=== PATIENT | female | born 1975 | race Caucasian/White ===

== ENCOUNTER 2025-06-02 10:48 | Outpatient (OUT) | payer OTHER, SELFPAY ==
--- OUTSIDE RECORDS SUMMARY | 2009-09-29 05:45 | XMS_ITS | Continuity of Care Document ---
Author Organization [facility] Address [address] [place] [address] Phone Care Team Providers Care Alignment Mechanic Name Role Phone Namrata PONCE Cruz Unavailable Unavailable Procedures Procedure Date TB INTRADERMAL TEST Advance Directives Directive Yes / No Effective Date File Name No Information Encounters Encounter Description Practice Location Reason(s) For Visit Diagnoses Date Provider Providers Copied on Encounter [facility], [address] [place] [address], [id number], [place] tel:[phone] [facility] No Information Namrata Herbert. [address], [place], [id number], [place]. tel:[phone] Family History Family Member Type Diagnosis Age At Onset No Information Payers Payer name Insurance type Covered libertarian ID Authoriza tion(s) No Information Social History Type Description Quantity Date Captured Comments Sex Female Smoking Status No Information Chief Complaint And Reason For Visit No Information Reason For Referral Reason For Referral No Information History Of Present Illness Encounter Date Complaint History Of Prese nt Illness No Information Functional Status Date Functional Assessmen t No Information Instructions Date Instruction Additional Infor mation No Information Assessments Type Assessment Date No Information Patient Care Teams Name Effective Dates (start - stop) Status Members No Information
--- OUTSIDE RECORDS SUMMARY | 2025-06-02 10:53 | XMS_ITS | Clinical Summary ---
Author Organization [facility] Address [address] [facility] [place] [address] Care Team Providers Care Repairer [employer] Name Role Phone Robe Caldera MD Primary Care Provider [phone] Robe Caldera MD Unavailable Allergies No known active allergies Medications ibuprofen 800 MG tabletIndications: Lumbar disc narrowing Take 1 tablet (800 mg) by mouth 3 (three) times a day as needed for mild pain 90 tablet 3 10/04/19 24 Active naloxone (Narcan) 4 mg/0.1 mL nasal sprayIndications:L zuleyka term current use of opiate analgesic Administer 1 spray (4 mg) into affected nostril(s) if needed for opioid reversal May repeat every 2-3 minutes if needed, alternating nostrils, until medical assistance becomes available. 2 each 3 04/29/20 24 Active cholecalciferol (Vitamin D-3) 50 MCG (1999 UT) tabletIndications: Vitamin D deficiency TAKE 1 TABLET BY MOUTH EVERY DAY 90 tablet 2 08/22/20 24 Active diclofenac sodium 1 % gelIndications:Brian ateral primary osteoarthritis of hip Apply 2 g topically in the morning and 2 g at noon and 2 g in the evening and 2 g before bedtime. 350 g 3 10/30/19 25 Active fluticasone (Flonase) 50 MCG/ACT nasal sprayIndications:A cute upper respiratory infection, unspecified,Acute upper respiratory infection SPRAY 2 SPRAYS INTO EACH NOSTRIL DAILY 48 mL 1 11/06/19 25 Active phentermine (Adipex-P) 37.5 MG tabletIndications: Class 3 severe obesity due to excess calories without serious comorbidity with body mass index (BMI) of 40.0 to 44.9 in adult ([facility]) Take 1 tablet (37.5 mg) by mouth in the morning. Take before meals. 30 tablet 04/29/20 Active oxyCODONE-acetamin ophen (Percocet) 10-325 MG tabletIndications: Lumbar disc narrowing Take 1 tablet by mouth 4 (four) times a day as needed for severe pain 120 tablet 04/29/20 25 025 Active Problems Problem Noted Date Diagnosed Date Class 3 severe obesity due t o excess calories without serious comorbidity with body mass index (BMI) of 40.0 to 44.9 in adult 04/29/2024 Assessment & Plan (04/29/2025 11:04 AM EDT): Patient overweight and difficult time losing weight. Discussed proper diet and regular aerobic exercise. Recommend Weight Watchers and need to limit calories and smaller portions. Need to increase activity and regular aerobic exercise several days a week for 30 minutes at a time. Interested in adipex and warned of potential cardiac side effects. Script written for first month and will need to recheck weight in 1 month. OARRS reviewed. Continue medications as prescribed. Assessment & Plan (10/30/2024 11:19 AM EST): Weight loss indicated. Assessment & Plan (04/29/2024 11:24 AM EDT): Weight loss indicated. Bilateral primary osteoarthritis of hip 10/04/19 Assessment & Plan (04/29/2025 11:03 AM EDT): Pain stable and use motrin and baclofen. Continue home ROM exercises. Use percocet PRN. Discussed risks and benefits of opiate therapy. Warned medication is narcotic and risk of addiction. OARRS reviewed. Assessment & Plan (04/29/2024 11:23 AM EDT): Pain stable and use motrin and baclofen. Continue home ROM exercises. Use percocet PRN. Discussed risks and benefits of opiate therapy. Warned medication is narcotic and risk of addiction. OARRS reviewed. Lumbar disc narrowing 10/04/2023 Assessment & Plan (04/29/2025 11:04 AM EDT): Pain stable and use motrin and baclofen. Continue home ROM exercises. Use percocet PRN. Discussed risks and benefits of opiate therapy. Warned medication is narcotic and risk of addiction. OARRS reviewed. Assessment & Plan (10/30/2024 11:20 AM EST): Pain stable and use motrin and baclofen. Continue home ROM exercises. Use percocet PRN. Discussed risks and benefits of opiate therapy. Warned medication is narcotic and risk of addiction. OARRS reviewed. Assessment & Plan (04/29/2024 11:23 AM EDT): Pain stable and use motrin and baclofen. Continue home ROM exercises. Use percocet PRN. Discussed risks and benefits of opiate therapy. Warned medication is narcotic and risk of addiction. OARRS reviewed. Assessment & Plan (10/04/2023 1:42 PM EST): Pain unchanged and continue motrin 800. Use percocet PRN. Vitamin D deficiency 10/04/2023 Annual physical exam 10/04/2023 Assessment & Plan (10/30/2024 11:19 AM EST): Due for labs and mammogram. Discussed proper diet and regular aerobic exercise. Need aerobic exercise 5-6 days a week for 30 minutes at a time. Smaller portions and limit total calories. Never had colon cancer screening and willing to have cologuard. Tetanus every 10 years. Advised not to smoke. Discussed daily Aspirin therapy. Assessment & Plan (10/04/2023 1:41 PM EST): Due for labs. Refused mammogram. Discussed proper diet and regular aerobic exercise. Need aerobic exercise 5-6 days a week for 30 minutes at a time. Smaller portions and limit total calories. Never had colon cancer screening and willing to have cologuard. Tetanus every 10 years. Advised not to smoke. Discussed daily Aspirin therapy. Herpes labialis 10/04/2023 Resolved Problems Problem Noted Date Diagnosed Date Resolved Date Acute left ankle pain 04/29/20242024 Assessment & Plan (04/29/2024 11:23 AM EDT): Pain likely related to OA. Treat with prednisone and use voltaren gel PRN. Encounters Date Type Department Care Team Description 04/29/2025 10:15 AM EDT Office Visit [facility] [address] [address] Robe Caldera MD Lumbar disc narrowing (Primary Dx); Bilateral primary osteoarthritis of hip; Class 3 severe obesity due to excess calories without serious comorbidity with body mass index (BMI) of 40.0 to 44.9 in adult ([facility]) 04/29/2025 Refill [facility] [address] [place] [address] Robe Caldera MD Lumbar disc narrowing 04/29/2025 Bamboo flowsheet [facility] [address] [address] Robe Caldera MD 04/02/2025 Refill [facility] [address] [place] [id number] Robe Caldera MD Lumbar disc narrowing 03/03/2025 Refill [facility] [address] [place] [address] Robe Caldera MD Lumbar disc narrowing from Last 3 Months Family History Medical History Relation Name Comments No Known Problems Father Diabetes Mother Relation Name Status Comments Father Mother Social History Tobacco Use Types Packs/Day Years Used Date Smoking Tobacco: Every Day Cigarettes Smokeless Tobacco: Never Tobacco Cessation:Ready to Q uit: Not Asked; Counseling Given: Not Answered PHQ-2 Answer Date Recorded Patient Health Questionnaire-2 Score 1 10/04/2023 Comments Unknown Sex and Gender Information Value Date Recorded Sex Assigned at Not on file Legal Sex Female 8:13 PM EDT Gender Identity Not on file Sexual Orientation Not on file Last Filed Vital Signs Vital Sign Reading Time Taken Comments Blood Pressure 128/72 04/29/2025 10:39 AM EDT Pulse 92 04/29/2025 10:39 AM EDT Temperature 36.3 C (97.3 F) 04/29/2025 10:39 AM EDT Respiratory Rate 20 04/29/2025 10:39 AM EDT Oxygen Saturation 98% 04/29/2025 10:39 AM EDT Inhaled Oxygen Concentration - - Weight 101 kg (223 lb) 04/29/2025 10:39 AM EDT Height 154.9 cm (5' 1 ) 04/29/2025 10:39 AM EDT Body Mass Index 42.14 04/29/2025 10:39 AM EDT Plan of Treatment Health Maintenance Due Date Last Done Comments CT Colonography 1976 Colonoscopy 1976 Colorectal Cancer Screening 1976 FIT-DNA 1976 FIT 1976 FOBT 1976 Sigmoidoscopy 1976 Pap Smear 1997 Cervical Cancer Screening 2006 HPV/Cotest 2006 Mammogram 2016 Influenza Vaccine (#1) 2025 Insurance [employer] Care Teams Repairer Engine [employer] Relationship Specialty Start Date End Date Robe Caldera MD PCP - General Family Medicine 04/29/24 Robe Caldera MD [address] [place] [address] [facility] 06/04/24
--- OUTSIDE RECORDS SUMMARY | 2025-06-02 10:53 | XMS_ITS | Encounter Summary ---
Author Organization [facility] tem Address [id number] [address] [place] [address] Care Team Providers Care Drug Abuse Social Worker Name Role Phone Robe Caldera MD Primary Care Provider [phone] Encounter Details Date Type Department Care Team (Late st Contact Info) Description 08/12/2021 Orders Only [facility] [address] [place] [id number] Arley Navas, PA [address] [facility] [place], [place] [id number] Social History Tobacco Use Types Packs/Day Years Used Date Smoking Tobacco: Never Assessed Comments Unknown Sex and Gender Information Value Date Recorded Sex Assigned at Not on file Legal Sex Female 12:47 PM EST Gender Identity Not on file Sexual Orientation Not on file documented as of this encounter Plan of Treatment Not on file documented as of this encounter Visit Diagnoses Not on filedocumented in this encounter Care Teams Drug Abuse Social Worker Relationship Specialty Start Date End Date Robe Caldera MD PCP - General Family Medicine 08/02/21 documented as of this encounter
--- NOTE | 2025-06-02 10:56 | MM_ITS ---
Patient Name: CICI DAVIS MR#: [id number] : 1975 Exam Date: 06/02/2025 Ordering Doctor: DR COLBY FLOREZ . RADIOLOGY REPORT PROCEDURE: MM TOMOSYNTHESIS SCREENING BI COMPARISON: None. INDICATIONS: Screening Calculator Name NCI Breast Cancer Risk Assessment Tool 5 Year Breast Cancer Risk 0.70% Lifetime Breast Cancer Risk 7.40% Personal Breast Cancer No Personal Ovarian Cancer No Treatments None Family Cancers None LOCATION: [facility] BREAST COMPOSITION: There are scattered areas of fibroglandular density. FINDINGS: DIAGNOSTIC CATEGORY 1--NEGATIVE. RIGHT BREAST: No significant suspicious finding. LEFT BREAST: No significant suspicious finding. RECOMMENDATIONS: ROUTINE MAMMOGRAM AND CLINICAL EVALUATION IN 12 MONTHS. Dictated by: Miguel Horan DO on 06/02/2025 at 15:03 Approved by: Miguel Horan DO on 06/02/2025 at 15:18
== END 2025-06-02 10:49 | disposition home or self-care (01) ==
LOC: MAMMO 10:52
PROVIDERS: PCP Family Medicine; Visit Provider Family Medicine
DX: Z12.31 Encounter for screening mammogram for malignant neoplasm of breast (principal)
CPT/HCPCS: 77063; 77067